=== PATIENT | male | born 1995 | race Asian ===

== ENCOUNTER 2020-02-13 13:50 | Emergency (ER) | payer SELFPAY ==
[~2020-02-13] VITALS: Ht 172.7 cm; Wt 80.1 kg
[2020-02-13] MEDS ORDERED: FLUORESCEIN OPHTHALMIC 1 MG STRIP ONE (14:05)
--- NOTE | 2020-02-13 14:15 | NUR ---
ASSUMED CARE OF PT AT THIS TIME FROM TRIAGE, VA'S COMPLETED IN TRIAGE. SHERRIE ROE AT BEDSIDE FOR EVALUATION. 25 Y/O M PRESENTS STATING "MY EYES ARE RED, ITCHY AND SWOLLEN, DRAINING CLEAR STUFF AND SOME CRUSTY STUFF IN MORNINGS, STARTED TUESDAY IN LEFT EYE AND NOT IN RIGHT TOO." +ERYTHEMA, SWELLING NOTED. NO DRAINAGE AT THIS TIME. EYES "WATERY." RESP REGULAR AND UNLABORED. NAD NOTED. CALL LIGHT IN REACH. FALL PRECUATIONS IN PLACE. SIDE RAILS UPX2. AWAITING ORDERS.
[2020-02-13 14:30] VITALS: BP 111/70
== END 2020-02-13 14:32 | disposition home or self-care (01) ==
LOC: ED 14:29
DX: H10.023 Other mucopurulent conjunctivitis, bilateral (principal)
CPT/HCPCS: 99283